=== PATIENT | male | born 1940 | race Caucasian/White ===

== ENCOUNTER 2020-10-07 05:58 | Day surgery (SDC) | payer OTHER ==
[2020-10-02 15:14] LABS: BASOPHILS % (AUTO) 0.4 % (0.0-5.0); EOSINOPHILS % (AUTO) 1.4 % (0.0-8.0); HEMATOCRIT 43.6 % (42-54); LYMPHOCYTES % (AUTO) 24.4 % (21.0-51.0); MEAN CORPUSCULAR HGB CONC 32.8 g/dL (32.0-36.0); MEAN CORPUSCULAR VOLUME 91.4 fL (79-99); MONOCYTES % (AUTO) 10.1 % (3.0-13.0); NEUTROPHILS % (AUTO) 63.6 % (40.0-77.0); PLATELET COUNT (AUTO) 184 K/uL (130-400); RED BLOOD CELL COUNT(AUTO) 4.77 MIL/uL (4.50-6.20); RED CELL DISTRIBUTION WIDTH 13.9 % (11.0-15.5); WHITE BLOOD COUNT (AUTO) 7.8 K/uL (4.8-10.8)
[2020-10-02 15:15] LABS: APPEARANCE,URINE Clear (CLEAR); BILIRUBIN,URINE Negative (NEGATIVE); COLOR,URINE Yellow (YELLOW); GLUCOSE, URINE (UA) Negative (NEGATIVE); KETONES,URINE Negative (NEGATIVE); LEUKOCYTE ESTERASE ,URINE Negative (NEGATIVE); NITRATE,URINE Negative (NEGATIVE); OCCULT BLOOD,URINE Negative (NEGATIVE); PROTEIN,URINE Negative (NEGATIVE)
[2020-10-02 15:52] LABS: CREATININE 0.9 mg/dL (0.5-1.5)
[2020-10-02 15:54] LABS: INR 1.05 (0.85-1.15); PROTHROMBIN TIME 11.4 SEC (9.6-11.6)
[2020-10-02 15:55] LABS: PARTIAL THROMBOPLASTIN TIME 28.2 SEC (26.3-35.5)
[2020-10-04 11:54] VITALS: BP 154/72
[~2020-10-07] VITALS: Ht 188 cm; Wt 112.2 kg
[2020-10-07] VITALS (12 sets, daily range): BP systolic 132–161; BP diastolic 62–81
[~2020-10-07 05:58] MED LIST: ASPI-1443 PO; CETI10TA86 PO; DICL75TA5 PO; DiphenhydrAMINE HCL 50 MG/ML VIAL IVP SCH; FLUT16H NASAL; LISI10TA24 PO; METHYLPREDNISOLONE SOD SUCC 125MG/2ML VIAL IVP SCH; PRAV40TA3 PO; SODIUM CHLORIDE 0.9% 500ML 500 ML IV SCH; TEMA15CA PO; TRAM50TA4 PO
[2020-10-07] MEDS ORDERED: FAMOTIDINE/PF 20 MG/2 ML VIAL IV ONE (07:40)
[2020-10-07] MEDS ORDERED: HEPARIN SODIUM 1000UNIT/ML 10ML VIAL ONE (07:46)
[2020-10-07] MEDS ORDERED: FENTANYL CITRATE PF 50 MCG/1 ML 2ML VIAL ONE (07:46)
[2020-10-07] MEDS ORDERED: NICARDIPINE HCL 25 MG/10 ML ML IV ONE (07:46)
[2020-10-07] MEDS ORDERED: IOHEXOL 350 MG/ML 100ML INFUS..BTL IV ONE (07:46)
[2020-10-07] MEDS ORDERED: IOHEXOL-350 50ML VIAL IV ONE (07:46)
[2020-10-07] MEDS ORDERED: MIDAZOLAM HCL 1 MG/ML 2ML VIAL ONE (07:46)
[2020-10-07] MEDS ORDERED: LIDOCAINE HCL 2% 20ML ONE (07:47)
[2020-10-07] MEDS ORDERED: SODIUM CHLORIDE 0.9% 1000ML 1,000 ML IV ONE (07:49)
[2020-10-07] MEDS ORDERED: CLOPIDOGREL BISULFATE 300 MG TAB ONE (08:42)
[2020-10-07] MEDS ORDERED: SODIUM CHLORIDE 0.9% 1000ML 1,000 ML IV SCH (09:45)
== END 2020-10-07 15:45 | disposition home or self-care (01) ==
LOC: DAH 05:58
PROVIDERS: ATTEND Internal Medicine
DX: I25.10 Atherosclerotic heart disease of native coronary artery without angina pectoris (principal); I42.9 Cardiomyopathy, unspecified; I11.0 Hypertensive heart disease with heart failure; I50.42 Chronic combined systolic (congestive) and diastolic (congestive) heart failure; G90.01 Carotid sinus syncope; E78.5 Hyperlipidemia, unspecified; I49.1 Atrial premature depolarization; I44.7 Left bundle-branch block, unspecified; I77.819 Aortic ectasia, unspecified site; Z79.01 Long term (current) use of anticoagulants; Z79.82 Long term (current) use of aspirin; Z85.038 Personal history of other malignant neoplasm of large intestine; Z72.89 Other problems related to lifestyle; Z79.899 Other long term (current) drug therapy; Z88.3 Allergy status to other anti-infective agents
CPT/HCPCS: 36415; 71045; 80048; 81003; 85025; 85610; 85730; 93005 ×2; 93458; A4215; A4216; A4221 ×2; A4222; A4223 ×3; A4606; A4663; C1725; C1769 ×4; C1874; C1887; C1894; C9600; J1200; J1644 ×3; J2250; J2930; J3010; J3490 ×3; J7030; J7040; Q9965 ×2; Q9967 ×2; 96360; 96361; 96374; 96375; 99156; 99157

== ENCOUNTER 2020-10-22 07:54 | Day surgery (SDC) | payer OTHER ==
[2020-10-18 13:55] LABS: BASOPHILS % (AUTO) 0.4 % (0.0-5.0); EOSINOPHILS % (AUTO) 1.2 % (0.0-8.0); HEMATOCRIT 43.2 % (42-54); LYMPHOCYTES % (AUTO) 14.5 % (21.0-51.0); MEAN CORPUSCULAR HEMOGLOBIN 30.1 pg (27.0-33.0); MEAN CORPUSCULAR HGB CONC 32.6 g/dL (32.0-36.0); MEAN CORPUSCULAR VOLUME 92.1 fL (79-99); MONOCYTES % (AUTO) 9.6 % (3.0-13.0); NEUTROPHILS % (AUTO) 74.1 % (40.0-77.0); PLATELET COUNT (AUTO) 182 K/uL (130-400); RED BLOOD CELL COUNT(AUTO) 4.69 MIL/uL (4.50-6.20); RED CELL DISTRIBUTION WIDTH 13.7 % (11.0-15.5); WHITE BLOOD COUNT (AUTO) 9.4 K/uL (4.8-10.8)
[2020-10-18 14:00] LABS: CREATININE 0.9 mg/dL (0.5-1.5); POTASSIUM 4.6 mmol/L (3.5-5.1)
[2020-10-18 14:03] LABS: INR 1.02 (0.85-1.15); PROTHROMBIN TIME 11.1 SEC (9.6-11.6)
[2020-10-18 14:04] LABS: PARTIAL THROMBOPLASTIN TIME 27.1 SEC (26.3-35.5)
[2020-10-21 10:50] VITALS: BP 165/72
[~2020-10-22] VITALS: Ht 188 cm; Wt 110.9 kg
[2020-10-22] VITALS (10 sets, daily range): BP systolic 125–147; BP diastolic 57–80
[~2020-10-22 07:54] MED LIST changes: +ATOR40TA69 PO; -CETI10TA86 PO; +CLOP75TA32 PO; -DiphenhydrAMINE HCL 50 MG/ML VIAL IVP SCH; -FLUT16H NASAL; -LISI10TA24 PO; +LISI20TA24 PO; -METHYLPREDNISOLONE SOD SUCC 125MG/2ML VIAL IVP SCH; -PRAV40TA3 PO; -SODIUM CHLORIDE 0.9% 500ML 500 ML IV SCH; -TRAM50TA4 PO
[2020-10-22] MEDS ORDERED: SOLU-MEDROL 125MG VIAL IVP SCH (08:00)
[2020-10-22] MEDS ORDERED: CEFAZOLIN SODIUM 1 GM VIAL IVP ONE (08:00)
[2020-10-22] MEDS ORDERED: DiphenhydrAMINE HCL 50 MG/ML VIAL IVP SCH (08:00)
[2020-10-22] MEDS ORDERED: 0.9%NACL 1000ML 1,000 ML IV SCH (08:00)
[2020-10-22] MEDS ORDERED: VANCOMYCIN 1G/250ML KIT 250 ML IV ONE (08:45)
[2020-10-22] MEDS ORDERED: LIDOCAINE HCL 1% MDV 50ML VIAL ONE ×2 (09:18→12:45)
[2020-10-22] MEDS ORDERED: BUPIVACAINE/PF 0.25% 30ML VIAL IJ ONE ×2 (09:18→12:45)
[2020-10-22] MEDS ORDERED: IODIXANOL 320 MG/ML 100 ML VIAL ONE (13:05)
[2020-10-22] MEDS ORDERED: MIDAZOLAM HCL 1 MG/ML 2ML VIAL ONE ×4 (13:05→14:31)
[2020-10-22] MEDS ORDERED: MEPERIDINE-PF 25 MG/ML SYG ONE ×4 (13:05→14:31)
[2020-10-22] MEDS ORDERED: CEFAZOLIN SODIUM 1 GM VIAL ONE (13:21)
[2020-10-22] MEDS ORDERED: ACETAMINOPHEN WITH CODEINE 1 TAB TAB PO PRN (15:00)
[2020-10-22] MEDS ORDERED: TRAM50TA4 PO (15:03)
== END 2020-10-22 18:55 | disposition home or self-care (01) ==
LOC: DAH 07:54
PROVIDERS: ATTEND Internal Medicine Cardiovascular Disease
DX: G90.01 Carotid sinus syncope (principal); I44.7 Left bundle-branch block, unspecified; I44.2 Atrioventricular block, complete; I42.0 Dilated cardiomyopathy; I49.3 Ventricular premature depolarization; I11.0 Hypertensive heart disease with heart failure; I50.22 Chronic systolic (congestive) heart failure; E78.5 Hyperlipidemia, unspecified; Z85.038 Personal history of other malignant neoplasm of large intestine; Z92.3 Personal history of irradiation; Z98.890 Other specified postprocedural states; Z79.82 Long term (current) use of aspirin; Z79.01 Long term (current) use of anticoagulants
CPT/HCPCS: 33208; 33225; 36415; 71045; 80048; 85025; 85610; 85730; A4215 ×2; A4216 ×2; A4221 ×2; A4222 ×2; A4223 ×6; A4606; A4663 ×2; A6258; C1769 ×2; C1898 ×2; C1900; C2621; J0690; J1200; J2175 ×3; J2250 ×3; J2930; J3490 ×2; J7030; Q9967; 99156; 99157; J3370

== ENCOUNTER → 2020-12-03 | Outpatient (CLI) | payer OTHER ==
[~2020-12-03] VITALS: Ht 182.9 cm; Wt 111.6 kg
[~2020-12-03] MED LIST changes: +REGADENOSON 0.4 MG/5 ML PF SYG IVP SCH; +TRAM50TA4 PO
== END | disposition home or self-care (01) ==
LOC: SHCH 07:48
PROVIDERS: ATTEND Internal Medicine
DX: I50.22 Chronic systolic (congestive) heart failure (principal)
CPT/HCPCS: 78452; 93017; 96374; A9500 ×2

== ENCOUNTER → 2023-02-24 | Outpatient (CLI) | payer MEDICARE ==
[~2023-02-24] MED LIST changes: +APIX5TAB PO; -ASPI-1443 PO; +CETI10TA57 PO; +CHOL100046 PO; +CYAN100099 PO; +DRON400T7 PO; +FERR-72 PO; +FLUT16H NASAL; +FURO40TA5 PO; -LISI20TA24 PO; +METO-391 PO; +PANT40TA54 PO; -REGADENOSON 0.4 MG/5 ML PF SYG IVP SCH; +SPIR25TA6 PO; -TRAM50TA4 PO
[2023-02-24 16:27] LABS: BASOPHILS % (AUTO) 0.4 % (0.0-5.0); EOSINOPHILS % (AUTO) 1.1 % (0.0-8.0); LYMPHOCYTES % (AUTO) 19.8 % (21.0-51.0); MEAN CORPUSCULAR HEMOGLOBIN 27.6 pg (27.0-33.0); MEAN CORPUSCULAR HGB CONC 30.8 g/dL (32.0-36.0); MEAN CORPUSCULAR VOLUME 89.6 fL (79-99); MONOCYTES % (AUTO) 9.9 % (3.0-13.0); NEUTROPHILS % (AUTO) 68.3 % (40.0-77.0); PLATELET COUNT (AUTO) 341 K/uL (130-400); RED BLOOD CELL COUNT(AUTO) 4.13 MIL/uL (4.50-6.20); RED CELL DISTRIBUTION WIDTH 14.6 % (11.0-15.5); WHITE BLOOD COUNT (AUTO) 10.6 K/uL (4.8-10.8)
[2023-02-24 16:36] LABS: POTASSIUM 3.7 mmol/L (3.5-5.1)
== END | disposition home or self-care (01) ==
LOC: LAB 11:48
PROVIDERS: ATTEND Internal Medicine Cardiovascular Disease
DX: I50.20 Unspecified systolic (congestive) heart failure (principal)
CPT/HCPCS: 36415; 80048; 85025

== ENCOUNTER → 2023-03-31 | Outpatient (CLI) | payer MEDICARE, OTHER | END | disposition home or self-care (01) | LOC: SHCH 10:36 | PROVIDERS: ATTEND Internal Medicine Cardiovascular Disease | DX: I34.0 Nonrheumatic mitral (valve) insufficiency (principal); I42.0 Dilated cardiomyopathy; I48.20 Chronic atrial fibrillation, unspecified; I11.9 Hypertensive heart disease without heart failure; E78.5 Hyperlipidemia, unspecified | CPT/HCPCS: 93306 ==